=== PATIENT | male | born 1960 | race African-American/Black ===

== ENCOUNTER 2020-03-31 11:01 | Emergency (ER) | payer MEDICARE, MEDICAID, SELFPAY ==
[2020-03-31 11:24] VITALS: BP 116/68; BP 119/79; PULSE 70; PULSE 79; RESP 18; TEMP 37.2; O2SAT 98; BMI 19.5
--- NOTE | 2020-03-31 12:23 | ED_ITS ---
HPI - General Adult General Chief complaint: General Medical Stated complaint: FOUND AT MALL CONFUSED Time Seen by Provider: 03/31/20 12:24 Source: patient Mode of arrival: ambulatory Limitations: no limitations History of Present Illness HPI narrative: 60-year-old male brought in by ambulance from the [facility] after reportedly that the patient had mental status change witnessed by security of [facility], patient emergency department and alert and coherent, patient has declined any recent seizure or postictal changes, patient adamantly declined any substance abuse, patient go to the mall every day try to avoid some home situation, patient declined any headache, no chest pain, no abdominal pain. Patient has no good reason why he is in the hospital today. However initially patient was found at [employer] sleeping and was disoriented initially. Related Data Allergies Allergy/AdvReac Type Severity Reaction Status Date / Time No Known Allergies Allergy Verified 03/31/20 11:22 Review of Systems Review of Systems: All other systems are reviewed and are negative Constitutional: Reports as per HPI and Reports no additional constitutional complaints Eyes: Reports as per HPI and Reports no additional eye complaints Reports system reviewed and no additional complaints, except as documented Cardiovascular: Reports as per HPI and Reports no additional cardiovascular complaints Respiratory: Reports as per HPI and Reports no additional respiratory complaints Gastrointestinal: Reports as per HPI and Reports no additional gastrointestinal complaints Genitourinary: Reports no additional female genitourinary complaints Musculoskeletal: Reports no additional musculoskeletal complaints Skin/Breast: Reports system reviewed and no additional complaints, except as docu Psychiatric: Reports no additional psychiatric complaints Endocrine: Reports no additional endocrine complaints Hematologic/Lymphatic: Reports no additional hematologic/lymphatic complaints Allergic/Immunologic: Reports no additional allergic/immunologic complaints Reports system reviewed and no additional complaints, except as documented and Reports Abnormal speech present [facility] Past Medical History Medical History Blind Seizure Social History Social History Advance Directives: No Advance Directives Information Provided: Yes Physical Exam Vital Signs: Vital Signs: Last Vital Signs Temp 98.9 F 03/31/20 11:24 Pulse 70 03/31/20 11:24 Resp 18 03/31/20 11:24 BP 116/68 03/31/20 11:24 Pulse Ox 98 03/31/20 11:24 Body Mass Index 19.5 Vital signs have been reviewed as normal and appeared to be correct. Blood pressure normal. Heart rate normal. Respiration rate normal. Temperature normal. Oxygen saturation normal. Appearance: Alert. Oriented X3. No acute distress. Head: Normal external exam. Normocephalic. Atraumatic. No Taylor signs noted. No raccoon eyes noted Eyes: PERRLA. EOMI. Conjunctiva and sclera normal. Eyelids normal. ENT: EAC normal. TM's Normal. Pharynx normal. Uvula midline. Moist mucous membranes. No trismus noted. No drooling noted. No muffled voice noted. Neck: Normal inspection. Neck supple. FROM. No adenopathy. Thyroid Normal. No meningeal signs. No neck mass noted. CVS: Normal heart rate and rhythm. Heart sound normal. No murmurs noted. Pulses normal throughout. Respiratory: No respiratory distress. Painless inspiration. Breath sounds normal. No wheezes/rales/rhonchi noted. Chest nontender. No accessory muscle usage noted or decreased air movement noted. Abdomen: Soft and nontender. Bowel sounds normal in all 4 quadrants. No distention noted. No organomegaly noted. No visible injury noted. Back: No CVA tenderness. Full range of motion noted. Skin: Skin warm and dry. Normal skin color. Normal skin turgor. No rashes/lesions/lacerations noted. Extremities: No lower extremity edema. Extremities exhibit normal range of motion. Extremities nontender. Neuro: Oriented X 3. No motor deficit. No sensory deficit. Reflexes normal. Medical Decision Making MDM Narrative Medical decision making narrative: Assessment and plan. 60-year-old male was brought in by ambulance after was sleeping in the mall, patient now is asymptomatic and would like to be discharged home. Patient strongly believes that nothing was wrong at the mall patient adamantly declined any substance abuse, patient also declined any recent seizure or postictal status. Patient would like to be discharged home now to catch a bus going back to the mall. Discharge Plan Discharge Clinical Impression: Encounter for medical screening examination Patient Disposition: Home, Self-Care Instructions: Normal Exam (ED) Referrals: Physician,Unknown [Primary Care Provider] - 2 days
--- NOTE | 2020-03-31 12:40 | PC.NURSE ---
PT IS ALERT AND APPROPRIATE EVALUATED BY
== END 2020-03-31 12:44 | disposition home or self-care (01) ==
PROVIDERS: Emergency Provider Emergency Medicine
DX: R41.82 Altered mental status, unspecified (principal)
CPT/HCPCS: 99283

== ENCOUNTER 2020-09-19 19:15 | Emergency (ER) | payer MEDICARE, MEDICAID, SELFPAY ==
--- NOTE | 2020-09-19 | ECG_ITS ---
Test Reason : AMS Blood Pressure : / mmHG Vent. Rate : 069 BPM Atrial Rate : 069 BPM P-R Int : 126 ms QRS Dur : 072 ms QT Int : 382 ms P-R-T Axes : -05 013 030 degrees QTc Int : 409 ms Normal sinus rhythm Normal ECG No previous ECGs available Referred By: Generic ED Physician Electronically Signed By:ELLE CALDERON
--- NOTE | ~2020-09-19 | CT_ITS ---
EXAMINATION: CT HEAD WITHOUT CONTRAST CLINICAL INFORMATION: New onset seizure. COMPARISON: None available. TECHNIQUE: Contiguous axial imaging was performed from the skull base to vertex without intravenous administration of contrast. This CT examination was performed using dose optimization techniques as appropriate, variously including the following: *Automated exposure control. *Adjustment of mA and/or kV according to patient size (this includes techniques or standardized protocols for targeted exams where dose is matched to indication/reason for exam; i.e. extremities or head). *Use of iterative reconstruction technique. DLP: 845 mGy-cm FINDINGS: There is a partially calcified chronic catheter in place extending from the temporal horn of the right lateral ventricle extracranially through the parietal bone prior to connecting with a suboccipital catheter terminating in the prepontine cistern. The extracranial portion of this catheter appears near completely calcified. 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 Absent septum pellucidum. The anterior aspect of the third ventricle measures up to 0.3 cm in diameter. The posterior aspect of the third ventricle and the cerebral aqueduct appear near completely compressed. Potential midline fusion of the thalami. Normal appearance of the fourth ventricle. No midline shift. No transtentorial herniation. No extra-axial fluid collection. There is no evidence of acute intracranial hemorrhage or edematous territorial infarction. There is no abnormal attenuation within the brain parenchyma. Duran-white matter differentiation is preserved. The sella turcica is mildly expanded and partially empty. The posterior fossa is small in size. The foramen magnum remains widely patent. No acute soft tissue or osseous abnormalities. Mild mucosal thickening of the paranasal sinuses. The mastoid air cells and middle ear cavities are clear mild degenerative arthropathy of the right temporal mandibular joint. Left-sided phthisis bulbi. CT/CT head/brain wo con IMPRESSION: 1. 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 2. No evidence of acute intracranial hemorrhage or edematous territorial infarction.
[2020-09-19 19:17] VITALS: BP 112/62; PULSE 78; RESP 18; TEMP 36.9; O2SAT 97; BMI 19.5
--- NOTE | 2020-09-19 19:34 | ED_ITS ---
HPI - Seizure General Chief Complaint: Altered Mental Status Stated Complaint: WITNESSED SEIZURE,POST-ICTAL Time Seen by Provider: 09/19/20 19:34 Source: patient Mode of arrival: EMS Limitations: no limitations History of Present Illness HPI Narrative: Patient with no history of seizures was found sleeping in the ma ll said that he was tired a node bystander noticed patient was jerking for less than 1 minute patient looks tired no confusion at this time patient states that he [place] to avoid home situation try to rest denies any substance abuse no head injury Related Data Allergies Allergy/AdvReac Type Severity Reaction Status Date / Time No Known Allergies Allergy Verified 03/31/20 11:22 Review of Systems Review of Systems: Yes all other systems are reviewed and are negative [facility] Past Medical History Medical History Blind Seizure Social History Social History Advance Directives: No Advance Directives Information Provided: Yes Physical Exam Vital Signs: Vital Signs: Last Vital Signs Temp 98.5 F 09/19/20 19:17 Pulse 68 09/19/20 19:36 Resp 16 09/19/20 19:36 BP 108/70 09/19/20 19:36 Pulse Ox 95 09/19/20 19:36 Body Mass Index 19.5 Appearance: Alert. Oriented X3. No acute distress. Eyes: PERRLA, No Nystagmus ENT: Pharynx normal. Oral Mucosa moist tongue is normal Neck: Normal inspection. Neck supple. CVS: Normal heart rate and rhythm. Pulses normal. Respiratory: No respiratory distress. Equal air entry bilateral, no wheezi ng/rales/rhonchi Abdomen: Soft and nontender. Bowel sounds are present, no mass palpable, no CVA tenderness Skin: Skin warm and dry. Normal skin color. Normal skin turgor. Extremities: No lower extremity edema. No calf tenderness Neuro: Oriented X 3. No motor deficit. No sensory deficit.No cerebellar signs , cranial nerves II-XII intact MDM - Seizure MDM Narrative Medical decision making narrative: Patient has stable labs and vitals not 100% sure that patient has seizure likely had twitching movements according to patient he was very tired and was sleeping and he does not have any seizures. Patient advised to follow-up with neurologist or PCP Lab Data Result diagrams: 09/19/20 19:31 09/19/20 19:31 Labs: Lab Results 09/19/20 09/19/20 09/19/20 Range/Units 19:26 19:31 19:31 WBC 3.4 L (4.8-10.8) X10*3/uL RBC 4.43 L (4.60-5.80) X10*6/uL Hgb 12.8 L (14.0-18.0) g/dl Hct 39.4 L (42-52) % MCV 88.9 (80-98) fL MCH 28.9 (27.0-33.0) pg MCHC 32.5 (31.0-36.0) g/dl RDW 13.1 (11.0-16.0) % Plt Count 209 (160-400) X10*3/uL MPV 9.7 (9.4-12.4) fL Immature Gran % (Auto) 0.3 (0.0-0.4) % Neut % (Auto) 41.4 L (45-73) % Lymph % (Auto) 45.3 H (20-40) % [place] % (Auto) 8.3 (2-11) % Eos % (Auto) 4.1 H (0-4) % Baso % (Auto) 0.6 (0-2) % Lymph # (Auto) 1.5 (1.2-4.9) X10*3/uL [place] # (Auto) 0.3 (0.1-1.2) X10*3/uL Eos # (Auto) 0.1 (0.0-0.4) X10*3/uL Baso # (Auto) 0.0 (0.0-0.2) X10*3/uL Abs Immat Gran (auto) 0.01 (0.00-0.03) X10*3/uL Absolute Neuts (auto) 1.4 L (2.0-8.3) X10*3/uL Absolute Nucleated RBC 0.000 (0.0-0.012) X10*3/uL Nucleated RBC % (auto) 0.0 (0.0-0.2) /100WBC Hold Blue Top SEE NOTE Sodium (135-145) mmol/L Potassium (3.3-5.1) mmol/L Chloride (96-108) mmol/L Carbon Dioxide (22-29) mmol/L Anion Gap (12-20) BUN (9-16) mg/dL Creatinine (0.5-1.4) mg/dL Estim Creat Clear Calc Estimated GFR POC Glucose 103 (60-115) mg/dL Random Glucose (60-115) mg/dL Calcium (8.4-10.2) mg/dL Total Bilirubin (0.0-1.0) mg/dL Direct Bilirubin (0.0-0.5) mg/dL AST (5-37) U/L ALT (0-40) U/L Alkaline Phosphatase (39-117) U/L Total Protein (6.5-8.0) g/dL Albumin (3.5-5.0) g/dL Ethyl Alcohol mg/dL 09/19/20 09/19/20 Range/Units 19:31 19:31 WBC (4.8-10.8) X10*3/uL RBC (4.60-5.80) X10*6/uL Hgb (14.0-18.0) g/dl Hct (42-52) % MCV (80-98) fL MCH (27.0-33.0) pg MCHC (31.0-36.0) g/dl RDW (11.0-16.0) % Plt Count (160-400) X10*3/uL MPV (9.4-12.4) fL Immature Gran % (Auto) (0.0-0.4) % Neut % (Auto) (45-73) % Lymph % (Auto) (20-40) % [place] % (Auto) (2-11) % Eos % (Auto) (0-4) % Baso % (Auto) (0-2) % Lymph # (Auto) (1.2-4.9) X10*3/uL [place] # (Auto) (0.1-1.2) X10*3/uL Eos # (Auto) (0.0-0.4) X10*3/uL Baso # (Auto) (0.0-0.2) X10*3/uL Abs Immat Gran (auto) (0.00-0.03) X10*3/uL Absolute Neuts (auto) (2.0-8.3) X10*3/uL Absolute Nucleated RBC (0.0-0.012) X10*3/uL Nucleated RBC % (auto) (0.0-0.2) /100WBC Hold Blue Top Sodium 143 (135-145) mmol/L Potassium 4.5 (3.3-5.1) mmol/L Chloride 110 H (96-108) mmol/L Carbon Dioxide 27 (22-29) mmol/L Anion Gap 11 L (12-20) BUN 11 (9-16) mg/dL Creatinine 0.97 (0.5-1.4) mg/dL Estim Creat Clear Calc 81.9 Estimated GFR > 60 POC Glucose (60-115) mg/dL Random Glucose 108 (60-115) mg/dL Calcium 9.7 (8.4-10.2) mg/dL Total Bilirubin 0.4 (0.0-1.0) mg/dL Direct Bilirubin < 0.2 (0.0-0.5) mg/dL AST 22 (5-37) U/L ALT 23 (0-40) U/L Alkaline Phosphatase 89 (39-117) U/L Total Protein 7.6 (6.5-8.0) g/dL Albumin 4.4 (3.5-5.0) g/dL Ethyl Alcohol < 10 mg/dL Discharge Plan Discharge Clinical Impression: Altered mental status, Seizure Patient Disposition: Home, Self-Care Instructions: Epilepsy (ED), Altered Mental Status (ED) Additional Instructions: you possibly had seizure .follow-up with neurologist Report to the ER if recurrence of seizures Referrals: Agustin Craig MD [Physician] - 2 days Interventions: ED Discharge Assessment Last Done: 09/19/20 21:19 Discharge Date/Time: 09/19/20 21:19
[2020-09-19 19:36] VITALS: BP 108/70; PULSE 68; RESP 16; O2SAT 95
[2020-09-19 19:37] LABS: MANUAL DIFF FLAG NO
[2020-09-19 19:41] LABS: Basophils Percent Auto 0.6 % (0-2); Eosinophils Absolute Auto 0.1 X10*3/uL (0.0-0.4); Eosinophils Percent Auto 4.1 % (0-4); Hematocrit 39.4 % (42-52); Hemoglobin 12.8 g/dl (14.0-18.0); Imm Gran Abs Auto 0.01 X10*3/uL (0.00-0.03); Imm Gran Pct Auto 0.3 % (0.0-0.4); Lymphocytes Absolute Auto 1.5 X10*3/uL (1.2-4.9); Lymphocytes Percent Auto 45.3 % (20-40); Mean Corpuscular HGB Conc 32.5 g/dl (31.0-36.0); Mean Corpuscular Hemoglobin 28.9 pg (27.0-33.0); Mean Corpuscular Volume 88.9 fL (80-98); Mean Platelet Volume 9.7 fL (9.4-12.4); Monocytes Absolute Auto 0.3 X10*3/uL (0.1-1.2); Monocytes Percent Auto 8.3 % (2-11); Neutrophils Absolute Auto 1.4 X10*3/uL (2.0-8.3); Neutrophils Percent Auto 41.4 % (45-73); Platelet Count 209 X10*3/uL (160-400); Red Blood Count 4.43 X10*6/uL (4.60-5.80); Red Cell Distribution Width 13.1 % (11.0-16.0); White Blood Count 3.4 X10*3/uL (4.8-10.8)
[2020-09-19 20:01] LABS: Ethanol < 10 mg/dL
[2020-09-19 20:07] LABS: Alanine Aminotransferase 23 U/L (0-40); Albumin Level 4.4 g/dL (3.5-5.0); Alkaline Phosphatase 89 U/L (39-117); Aspartate Amino Transferase 22 U/L (5-37); Bilirubin Direct < 0.2 mg/dL (0.0-0.5); Bilirubin Total 0.4 mg/dL (0.0-1.0); Blood Urea Nitrogen 11 mg/dL (9-16); Calcium 9.7 mg/dL (8.4-10.2); Creatinine Clr Calc Pharmacy 81.9; Estimated Glomerular Filt Rate > 60; Glucose Random 108 mg/dL (60-115); Total Protein 7.6 g/dL (6.5-8.0)
[2020-09-19 20:19] LABS: Anion Gap 11 (12-20); Carbon Dioxide 27 mmol/L (22-29); Chloride 110 mmol/L (96-108); Potassium 4.5 mmol/L (3.3-5.1); Sodium 143 mmol/L (135-145)
[2020-09-19 20:41] LABS: Glucose, Whole Blood 103 mg/dL (60-115)
== END 2020-09-19 21:19 | disposition home or self-care (01) ==
PROVIDERS: Emergency Provider Internal Medicine
DX: R56.9 Unspecified convulsions (principal); Z79.899 Other long term (current) drug therapy
CPT/HCPCS: 36415; 70450; 80053; 80076; 80320; 82248; 82947; 85025; 93005; 99284

== ENCOUNTER 2021-07-08 16:33 | Emergency (ER) | payer MEDICARE, MEDICAID, SELFPAY ==
--- NOTE | ~2021-07-08 | CT_ITS ---
EXAMINATION: CT HEAD WITHOUT CONTRAST CLINICAL INFORMATION: Syncope. Loss of consciousness COMPARISON: CT head 09/19/2020 TECHNIQUE: Contiguous axial imaging was performed from the skull base to vertex without intravenous administration of contrast. This CT examination was performed using dose optimization techniques as appropriate, variously including the following: *Automated exposure control *Adjustment of mA and/or kV according to patient size (this includes techniques or standardized protocols for targeted exams where dose is matched to indication/reason for exam; i.e. extremities or head) *Use of iterative reconstruction technique DLP: 883 mGy-cm FINDINGS: Stable appearance of the dilated ventricles and the lateral ventricle with bilateral colpocephaly. Absent septum pellucidum. No change position of the right anterior ventricular catheter extending from a right occipital approach. The catheter is partially calcified. No acute intracranial hemorrhage. No evidence of acute parenchymal lesion or infarct. No extra-axial collection. No acute osseous abnormality. Normal aeration of the paranasal sinuses and mastoid air cells and middle ear cavities. Left-sided phthisis bulbi. CT/CT head/brain wo con IMPRESSION: 1. No acute intracranial abnormality. 2. Stable dilatation of the lateral ventricles, absent septum pellucidum. Stable appearance of right posterior approach intraventricular catheter.
--- NOTE | ~2021-07-08 | XR_ITS ---
EXAMINATION: XR CHEST CLINICAL INFORMATION: Fall COMPARISON: None TECHNIQUE: Frontal view of the chest was obtained. FINDINGS: No significant abnormality is noted involving the heart, lungs, mediastinum, bony thorax or soft tissues. The bony thorax appears intact no rib fractures are seen. XR/XR chest 1V IMPRESSION: Unremarkable examination.
--- NOTE | 2021-07-08 16:41 | ECG_ITS ---
Test Reason : FALL Blood Pressure : / mmHG Vent. Rate : 063 BPM Atrial Rate : 063 BPM P-R Int : 128 ms QRS Dur : 070 ms QT Int : 398 ms P-R-T Axes : 002 009 029 degrees QTc Int : 407 ms Normal sinus rhythm Normal ECG When compared with ECG of 19-SEP-2020 19:27, No significant change was found Referred By: Heaven Espinosa Electronically Signed By:ELLE CALDERON
--- NOTE | 2021-07-08 16:42 | ED_ITS ---
HPI - Syncope General Chief Complaint: Fall Stated Complaint: TRIP AND FALL AT MALL,? @ BASELINE MENTAL STATUS Time Seen by Provider: 07/08/21 16:41 Source: patient and EMS Limitations: altered mental status and other (Patient appears confused) History of Present Illness HPI narrative: This is a 61 year old male past medical history significant for seizures presenting to the emergency department via ambulance from the [facility] s post a possible syncopal episode with head strike unwhitnessed. Kymberly called 911. Patient's baseline mental status is unknown. He is able to answer basic questions however does appear slightly confused. He did not want to come in to the emergency department. Med Oscar was called via [facility] in as patient did not want to come in to the emergency department, however he was advised to come in as his baseline mental status is unknown he appears to be confused. He denies any medical complaints at this time. He does tell me that he knows he fell to the ground loss consciousness however he has no pain or complaints at this time. No evidence signs of trauma. Does not appear to be postictal. MD complaint: loss of consciousness Prodromal symptoms: none Witnessed: No Context: during exertion (walking at mall ) Injuries sustained associated with event: none Current symptoms: none Treatments prior to arrival: none Related Data Previous Rx's Medication Instructions Recorded phenytoin sodium extended 100 mg 100 mg PO TID #30 cap 07/08/21 capsule (Dilantin Extended) Allergies Allergy/AdvReac Type Severity Reaction Status Date / Time No Known Allergies Allergy Verified 03/31/20 11:22 Review of Systems Review of Systems: Constitutional : No Weight loss, No Fever, No Chills, No Fatigue, No Malaise ENT/Mouth : No sore throat, No Rhinorrhea Eyes: No Eye Pain, No Swelling, No Redness Cardiovascular : No Chest Pain, No SOB, No Dyspnea on Exertion, No Orthopnea, No Edema, No Palpitations Respiratory : No Cough, No Sputum, No Wheezing Gastrointestinal : No Nausea, No Vomiting, No Diarrhea, No Constipation, No abdominal Pain, No Hematochezia, No Melena Genitourinary : No Dysuria, No Urinary Frequency, No Hematuria, Musculoskeletal : No joint pain, No Myalgias, No Joint Swelling Skin : No Skin Lesions, No rash Neuro : No Weakness, No Numbness, No Dizziness, No Headache Psych : No Anxiety/Panic, No Depression All other systems reviewed and are negative Yes all other systems are reviewed and are negative [facility] Past Medical History Attestation statement: The following information was validated with the patient. Source: old records reviewed and nursing notes reviewed Medical History Blind Seizure Social History Social History Advance Directives: No Advance Directives Information Provided: No Physical Exam Vital Signs: Vital Signs: Last Vital Signs Temp 98.2 F 07/08/21 18:55 Pulse 76 07/08/21 18:55 Resp 16 07/08/21 18:55 BP 118/78 07/08/21 18:55 Pulse Ox 99 07/08/21 18:55 BMI result Body Mass Index 24.8 VSS Appearance: Alert.? Oriented X3.? No acute distress.? Head: Normocephalic, atraumatic, no step-offs or deformities Eyes: Pupils equal, round and reactive to light.? ENT: Pharynx normal.? Neck: Normal inspection.? Neck supple.? CVS: Normal heart rate and rhythm.? Pulses normal.? Respiratory: No respiratory distress.? Breath sounds normal.? Abdomen: Soft and nontender.? Skin: Skin warm and dry.? Normal skin color.? Normal skin turgor.? Extremities: No lower extremity edema.? No calf ttp. 5/5 strength to bilateral upper and lower extremities Back: No midline tenderness, no C-spine tenderness, full range of motion, no CVA tenderness bilaterally Neuro: Oriented X 3.? No motor deficit.? No sensory deficit. CN 2-12 intact. Normal [id number], [id number]. Course Reevaluation(s) Reevaluation #1: CBC appears to be at patient's baseline, leukopenia and normocytic anemia present however it was also present in September 2020. no acute electrolyte abnormalities. Troponin negative. EKG is nonischemic. Unlikely that this is ACS. Patient not complaining of chest pain. Patient is still not having any medical complaints at this time. Patient requesting to leave. Time: 19:03 Reevaluation #2: Dilantin level low. Will give a g now and will give him p.o. meds for home. Discussed dose of home meds with pharmacy they recommended 100 mg extended release p.o. t.i.d.. It appears as though patient has not been taking his medications as prescribed the last time he filled this medication was in 2019. For this reason he will be restarted on this medication he has been advised to follow-up with his primary care provider. Ideally I wanted patient to stay [place] buddy he wants to leave. Feel comfortable with discharge home with PCP and neurology follow-up. Time: 19:06 MDM - Syncope MDM Narrative Medical decision making narrative: 1641 61 yo m pmhx epilepsy presents to ed s/p possible syncopal episode or seizure that occurred just prior to his arrival. [place] call [place]. Patient does tell me he lost consciousness and fell. He is not on blood thinners. Physical examination benign. Based off this patient's history and physical examination it is likely that patient had an unwitnessed seizure. Plan at this time is to obtain basic labs, CT of head/brain, Phenytoin level. Medical Records Attestation: I reviewed the patient's medical records. Lab Data Attestation: I reviewed the patient's lab results. Result diagrams: 07/08/21 17:54 07/08/21 17:54 Labs: Lab Results 07/08/21 07/08/21 07/08/21 Range/Units 17:40 17:54 17:54 WBC 3.8 L (4.8-10.8) X10*3/uL RBC 4.21 L (4.60-5.80) X10*6/uL Hgb 12.4 L (14.0-18.0) g/dl Hct 37.3 L (42.0-52.0) % MCV 88.6 (80.0-98.0) fL MCH 29.5 (27.0-33.0) pg MCHC 33.2 (31.0-36.0) g/dl RDW 13.8 (11.0-16.0) % Plt Count 227 (160-400) X10*3/uL MPV 9.9 (9.4-12.4) fL Immature Gran % (Auto) 0.8 H (0.0-0.4) % Neut % (Auto) 54.8 (45-73) % Lymph % (Auto) 32.7 (20-40) % [place] % (Auto) 7.7 (2-11) % Eos % (Auto) 3.2 (0-4) % Baso % (Auto) 0.8 (0-2) % Lymph # (Auto) 1.2 (1.2-4.9) X10*3/uL [place] # (Auto) 0.3 (0.1-1.2) X10*3/uL Eos # (Auto) 0.1 (0.0-0.4) X10*3/uL Baso # (Auto) 0.0 (0.0-0.2) X10*3/uL Abs Immat Gran (auto) 0.03 (0.00-0.03) X10*3/uL Absolute Neuts (auto) 2.1 (2.0-8.3) x10*3/uL Absolute Nucleated RBC 0.000 (0.0-0.012) X10*3/uL Nucleated RBC % (auto) 0.0 (0.0-0.2) /100WBC Sodium 138 (135-145) mmol/L Potassium 4.6 (3.3-5.1) mmol/L Chloride 105 (96-108) mmol/L Carbon Dioxide 30 H (22-29) mmol/L Anion Gap 8 L (12-20) BUN 9 (9-16) mg/dL Creatinine 0.87 (0.5-1.4) mg/dL Estim Creat Clear Calc 84.4 Estimated GFR > 60 Random Glucose 101 (60-115) mg/dL Calcium 9.5 (8.4-10.2) mg/dL Magnesium 2.0 (1.6-2.6) mg/dL Total Bilirubin 0.3 (0.0-1.0) mg/dL AST 24 (5-37) U/L ALT 18 (0-40) U/L Alkaline Phosphatase 112 D (39-117) U/L Troponin I High Sens (<3.5-35.0) ng/L Total Protein 7.7 (6.5-8.0) g/dL Albumin 4.3 (3.5-5.0) g/dL Phenytoin (10.0-20.0) ug/mL COVID-19 ([facility]) Negative (Negative) COVID-19 Clin Com See Note 07/08/21 07/08/21 Range/Units 17:54 17:54 WBC (4.8-10.8) X10*3/uL RBC (4.60-5.80) X10*6/uL Hgb (14.0-18.0) g/dl Hct (42.0-52.0) % MCV (80.0-98.0) fL MCH (27.0-33.0) pg MCHC (31.0-36.0) g/dl RDW (11.0-16.0) % Plt Count (160-400) X10*3/uL MPV (9.4-12.4) fL Immature Gran % (Auto) (0.0-0.4) % Neut % (Auto) (45-73) % Lymph % (Auto) (20-40) % [place] % (Auto) (2-11) % Eos % (Auto) (0-4) % Baso % (Auto) (0-2) % Lymph # (Auto) (1.2-4.9) X10*3/uL [place] # (Auto) (0.1-1.2) X10*3/uL Eos # (Auto) (0.0-0.4) X10*3/uL Baso # (Auto) (0.0-0.2) X10*3/uL Abs Immat Gran (auto) (0.00-0.03) X10*3/uL Absolute Neuts (auto) (2.0-8.3) x10*3/uL Absolute Nucleated RBC (0.0-0.012) X10*3/uL Nucleated RBC % (auto) (0.0-0.2) /100WBC Sodium (135-145) mmol/L Potassium (3.3-5.1) mmol/L Chloride (96-108) mmol/L Carbon Dioxide (22-29) mmol/L Anion Gap (12-20) BUN (9-16) mg/dL Creatinine (0.5-1.4) mg/dL Estim Creat Clear Calc Estimated GFR Random Glucose (60-115) mg/dL Calcium (8.4-10.2) mg/dL Magnesium (1.6-2.6) mg/dL Total Bilirubin (0.0-1.0) mg/dL AST (5-37) U/L ALT (0-40) U/L Alkaline Phosphatase (39-117) U/L Troponin I High Sens < 3.5 (<3.5-35.0) ng/L Total Protein (6.5-8.0) g/dL Albumin (3.5-5.0) g/dL Phenytoin < 0.5 L* (10.0-20.0) ug/mL COVID-19 ([facility]) (Negative) COVID-19 Clin Com Critical Care Time Critical Care Time Critical Care Time: No Discharge Plan Discharge Clinical Impression: Seizure Patient Disposition: Home, Self-Care Instructions: Epilepsy in Older Adults (ED) Additional Instructions: Take your medications as prescribed. If you were prescribed antibiotics today, it is important that you take your medication to their entirety, do not skip any doses, do not finish them early. Follow-up with your primary care provider this week. Follow-up with Neurology as soon as possible. You were started back on your seizure medications that you were taking before. Please to not operate a motor vehicle. Return to the emergency department with new or worsening symptoms. In case of emergency call 911 Prescriptions: New phenytoin sodium extended [Dilantin Extended] 100 mg capsule 100 mg PO TID Qty: 30 0RF Referrals: Physician,Korey J [Primary Care Provider] - 2 days Aida Amaral MD [Physician] - 2 days Stand Alone Forms: Work/School Release
[2021-07-08 16:52] VITALS: BP 115/71; PULSE 70; RESP 18; TEMP 36.7; O2SAT 97; BMI 24.8
[2021-07-08 17:35] VITALS: BP 116/75; BP 97/65; PULSE 64; PULSE 74
[2021-07-08 17:38] VITALS: BP 118/79; PULSE 74
[2021-07-08] MEDS: 0.9 % Sodium Chloride 1,000 ML 999 ML IV (17:54)
[2021-07-08 17:59] LABS: MANUAL DIFF FLAG NO
[2021-07-08 18:14] LABS: COVID-19 Test Negative (Negative); IDNOW Serial# 55D5AD1C
[2021-07-08 18:16] LABS: Alanine Aminotransferase 18 U/L (0-40); Albumin Level 4.3 g/dL (3.5-5.0); Alkaline Phosphatase 112 U/L (39-117); Anion Gap 8 (12-20); Aspartate Amino Transferase 24 U/L (5-37); Bilirubin Total 0.3 mg/dL (0.0-1.0); Blood Urea Nitrogen 9 mg/dL (9-16); Calcium 9.5 mg/dL (8.4-10.2); Carbon Dioxide 30 mmol/L (22-29); Chloride 105 mmol/L (96-108); Creatinine Clr Calc Pharmacy 84.4; Estimated Glomerular Filt Rate > 60; Glucose Random 101 mg/dL (60-115); Potassium 4.6 mmol/L (3.3-5.1); Sodium 138 mmol/L (135-145); Total Protein 7.7 g/dL (6.5-8.0)
[2021-07-08 18:18] LABS: Basophils Percent Auto 0.8 % (0-2); Eosinophils Absolute Auto 0.1 X10*3/uL (0.0-0.4); Eosinophils Percent Auto 3.2 % (0-4); Hematocrit 37.3 % (42.0-52.0); Hemoglobin 12.4 g/dl (14.0-18.0); Imm Gran Abs Auto 0.03 X10*3/uL (0.00-0.03); Imm Gran Pct Auto 0.8 % (0.0-0.4); Lymphocytes Absolute Auto 1.2 X10*3/uL (1.2-4.9); Lymphocytes Percent Auto 32.7 % (20-40); Mean Corpuscular HGB Conc 33.2 g/dl (31.0-36.0); Mean Corpuscular Hemoglobin 29.5 pg (27.0-33.0); Mean Corpuscular Volume 88.6 fL (80.0-98.0); Mean Platelet Volume 9.9 fL (9.4-12.4); Monocytes Absolute Auto 0.3 X10*3/uL (0.1-1.2); Monocytes Percent Auto 7.7 % (2-11); Neutrophils Absolute Auto 2.1 x10*3/uL (2.0-8.3); Neutrophils Percent Auto 54.8 % (45-73); Platelet Count 227 X10*3/uL (160-400); Red Blood Count 4.21 X10*6/uL (4.60-5.80); Red Cell Distribution Width 13.8 % (11.0-16.0); White Blood Count 3.8 X10*3/uL (4.8-10.8)
[2021-07-08 18:19] LABS: Troponin-I High Sensitivity < 3.5 ng/L (<3.5-35.0)
[2021-07-08 18:55] VITALS: BP 118/78; PULSE 76; RESP 16; TEMP 36.8; O2SAT 99
[2021-07-08 19:02] LABS: Phenytoin Dilantin < 0.5 ug/mL (10.0-20.0)
[2021-07-08 20:48] VITALS: BP 111/85; PULSE 82; RESP 18; O2SAT 98
--- NOTE | 2021-07-08 20:55 | PHA.MEDREC ---
Pharmacy Consult ? Medication Reconciliation Pharmacy has completed the medication reconciliation. Contacted outpatient pharmacy who has no fill history since 2019. Patient came in non-verbal.
[2021-07-08 20:56] LABS: Appearance Urine CLOUDY; Color Urine YELLOW; Glucose Urine UA NEG (NEG); Leukocyte Esterase Urine 2+ (NEG); Nitrite Urine POS (NEG); UACC Culture Trigger YES; Urine Blood TRACE (NEG); Urine Ketones NEG (NEG); Urine Protein TRACE MG/DL (NEG-TRACE)
[2021-07-08 21:00] LABS: WBC Urine TNTC /HPF (0-4)
[2021-07-08 21:01] LABS: Bacteria Urine 4+ /LPF
== END 2021-07-08 22:20 | disposition left against medical advice (07) ==
PROVIDERS: Physician Assistant; Emergency Provider Internal Medicine
DX: R56.9 Unspecified convulsions (principal); R07.81 Pleurodynia; R51.9 Headache, unspecified; Z20.822 Contact with and (suspected) exposure to COVID-19; Z79.899 Other long term (current) drug therapy
CPT/HCPCS: 36415; 70450; 71045; 80053; 80185; 81001; 83735; 84484; 85025; 87086; 87088; 87186; 87635; 93005; 96361; 96365; 99284; 99285